=== PATIENT | female | born 1985 | race Caucasian/White ===

== ENCOUNTER 2018-12-23 10:44 | Outpatient (CLI) | payer SELFPAY ==
[2018-12-23 12:15] LABS: HCG Quant, Pregnancy 831 mIU/mL (1-3)
== END 2018-12-23 11:04 ==
PROVIDERS: PCP Nurse Practitioner Adult Health; Visit Provider Advanced Practice Midwife
DX: O20.0 Threatened abortion (principal)
CPT/HCPCS: 36415; 84702

== ENCOUNTER 2018-12-25 15:36 | Outpatient (CLI) | payer SELFPAY ==
[2018-12-25 16:56] LABS: HCG Quant, Pregnancy 790 mIU/mL (1-3)
== END 2018-12-25 15:56 ==
PROVIDERS: Advanced Practice Midwife; PCP Nurse Practitioner Adult Health; Visit Provider Obstetrics & Gynecology
DX: O03.9 Complete or unspecified spontaneous abortion without complication
CPT/HCPCS: 86850; 86900; 86901; 84702; 85025

== ENCOUNTER 2018-12-27 12:50 | Outpatient (CLI) | payer MEDICAID, SELFPAY ==
[2018-12-27 13:14] LABS: Abs Immature Grans 0.01 k/cumm (0.0-0.09); Absolute Basophil Count 0.02 k/cumm (0.0-0.2); Absolute Eosinophil Count 0.24 k/cumm (0.0-0.7); Absolute Lymphocyte Count 2.39 k/cumm (1.2-3.4); Absolute Monocyte Count 0.53 k/cumm (0.11-0.7); Absolute Neutrophil Count 3.75 k/cumm (1.2-6.7); Basophils % 0.3; Eosinophils % 3.5; HCT 39.1 % (36.0-46.0); HGB 13.3 g/dL (12.0-15.5); Immature Grans % 0.1; Lymphocytes % 34.4; Mean Corpuscular Hemoglobin 29.6 pg (27.0-33.0); Mean Corpuscular Volume 86.9 fL (80-95); Mean Platelet Volume 11.8 fL (8.0-11.0); Monocytes % 7.6; Neutrophils % 54.1; Platelet Count 188 x1000/uL (130-400); RBC Distribution Width 12.5 % (11.7-14.6); White Blood Cell Count 6.94 k/cumm (4.4-10.8)
[2018-12-27 14:17] LABS: HCG Quant, Pregnancy 1300 mIU/mL (1-3)
== END 2018-12-27 13:10 ==
PROVIDERS: PCP Nurse Practitioner Adult Health; Visit Provider Obstetrics & Gynecology
DX: O03.9 Complete or unspecified spontaneous abortion without complication (principal)
CPT/HCPCS: 36415; 84702; 85025

== ENCOUNTER 2018-12-29 18:21 | Emergency (ER) | payer MEDICAID, SELFPAY ==
[2018-12-29] VITALS (12 sets, daily range): BP systolic 112–139; BP diastolic 65–78; PULSE 81–111; RESP 16–18; TEMP 36.4–37.4; O2SAT 97–100
--- NOTE | 2018-12-29 18:26 | DI.US_ITS ---
EXAM: US PELVIS TRANSVAGINAL CLINICAL HISTORY: vaginal bleeding, rising BHCG TECHNIQUE: Ultrasound performed using standard protocol. Transabdominal and transvaginal exams wer e performed. COMPARISON: No exams were available for comparison FINDINGS: No intrauterine gestation is visible. The uterus measures 8.5 x 4.6 x 5.9 cm. The endometrial stripe measures 6 millimeters in thickness. There is a small amount of free fluid in the cul-de-sac. There i s an abnormal heterogeneous area adjacent to the left ovary. There is increased blood flow. The findi ngs could represent a tubal ectopic . A cyst measuring 2 cm is seen on the right ovary. IMPRESSION: 3.5 centimeter mass adjacent to the left ovary could represent an ectopic .
[2018-12-29] MEDS: Normal Saline 1,000 ML 150 ML IV (18:30)
--- NOTE | 2018-12-29 18:34 | ED.GENADUL_ITS ---
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 Clinical Impression: Ectopic Primary Care Provider: Cherrie Carrion ED Provider: Yovanny Pompa Meds and New Rx's Prescriptions: Continued multivitamin [Daily Multi-Vitamin] 1 EACH tablet 1 ea PO DAILY RF: 0 metoprolol succinate 25 MG tablet extended release 24 hr 25 mg PO DAILY Qty: 0.5 RF: 0 Co Q-10 300 MG capsule 300 mg PO DAILY RF: 0 magnesium amino acid chelate 100 MG tablet 100 mg PO DAILY RF: 0 [place] lamb tea DAILY RF: 0 hibiscus tea DAILY RF: 0 [place] Lamb Extract 650 mg PO BID RF: 0 Discharge Instructions Instructions: Ectopic (ED) Additional Instructions: Please follow-up with OB as discussed with them. Will need repeat beta quant at 4 days in 7 days. Return to emergency if you develop abdominal pain, heavy vaginal bleeding, lightheadedness/syncope. Referrals: Farhad Moreno MD [ NON-[facility]] - Medical Decision Making <Abad Perez MD - Last Filed: 12/29/18 19:34> 33-year-old female G3, P2 at approximately 6 weeks gestation who presents on referral from Dr. Moreno. She developed vaginal bleeding intermittently over the past week with some associated cramps and passage of dark tissue. She had an ultrasound which did show question free fluid around the left adnexa. Her beta hCG quant initially dropped from 800-700 and then julian again to 1300. Due to the rising beta hCG and ongoing intermittent vaginal bleeding, patient was referred back for evaluation. She denies to me abdominal pain. She is otherwise well-appearing. IV placed, screening laboratories obtained and patient referred for ultrasound. Labs reveal a white blood cell count of 7.9, hematocrit 38, platelets 178. Beta hCG +1640. Chemistry panel otherwise reassuring. Ultrasound reveals preliminary read of left ectopic. 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 Patient seen by Dr. Moreno. Patient and Dr. Moreno have decided to go ahead with methotrexate with close follow-up including repeat hCG at 4 days and 7 days. Dosing determined by Dr. Moreno and confirmed by pharmacist. Patient to return to ED if she develops abdominal pain, bleeding, lightheadedness or syncope. HPI <Abad Perez MD - Last Filed: 12/29/18 19:34> General Mode of arrival: ambulatory . Date/Time Provider Initiated Documentation: 12/29/18 18:26 . Limitations to Documentation: no limitations . Information obtained by: patient . History of Present Illness 33 year old F presents to the emergency department with the chief complaint of Vaginal bleeding intermittently for 1 week, described as moderate, and is localized to the pelvis and genitals. Patient started experiencing this day(s) and it has been intermittent. No relieving factors improve symptom(s), No exacerbating factors reported . Patient notes no other symptoms.; denies syncope and weakness. Patient did receive the following treatments prior to arrival, none Related Data Home Medications Medication Instructions Recorded Confirmed Co Q-10 300 mg PO DAILY 09/21/15 12/29/18 [place] Lamb Tea DAILY 09/21/15 12/25/18 Hibiscus Tea DAILY 09/21/15 12/25/18 magnesium amino acid chelate 100 mg PO DAILY 09/21/15 12/29/18 metoprolol succinate 25 mg PO DAILY #0.5 tab-cap 09/21/15 12/29/18 multivitamin [Daily Multi-Vitamin] 1 ea PO DAILY 09/21/15 12/29/18 [place] Lamb Extract 650 mg PO BID 12/29/18 12/29/18 Allergies Allergy/AdvReac Type Severity Reaction Status Date / Time Penicillins Allergy As Unverified 12/29/18 18:38 Sulfa (Sulfonamide Allergy As Unverified 12/29/18 18:38 Antibiotics) General 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 Pleasant, well groomed, interactive. HEAD: Normocephalic, atraumatic ENT: Mucous membranes moist, oropharynx unremarkable, External ear exam unremarkable EYES: PERRL, EOMI NECK: Full ROM, no DOMINGA, no menigismus CHEST/RESP: Nontender, clear to auscultation bilateral, no wheeze/rhonchi/rales CARDIOVASCULAR: RRR, no murmur, rub charley. 2+ Rad pulse bilateral ABDOMEN: Soft, nontender, no mass. +Bowel sounds EXT: Full ROM, no edema, no rash Neuro: Grossly normal neurologic exam, conversant, interactive. Psych: Speech fluent, thoughts congruent, affect normal Course <Abad Perez MD - Last Filed: 12/29/18 19:34> Vital Signs Vital signs: Vital Signs Temperature 36.4 C L 12/29/18 18:24 Pulse 81 12/29/18 18:24 Respiratory Rate 18 12/29/18 18:24 Blood Pressure 128/73 12/29/18 18:24 Pulse Oximetry 98 12/29/18 18:24 Temperature 36.4 C L 12/29/18 18:24 Temperature Source Skin 12/29/18 18:24 Pulse 81 12/29/18 18:24 Respiratory Rate 18 12/29/18 18:24 Blood Pressure 128/73 12/29/18 18:24 Blood Pressure Position Sitting 12/29/18 18:24 Pulse Oximetry 98 12/29/18 18:24 Oxygen Delivery Method Room Air 12/29/18 18:24 Oxygen Flow Rate 0 12/29/18 18:24 Sign Out <Abad Perez MD - Last Filed: 12/29/18 19:34> Sign Out Data: Sign Out Comment: followup with [employer] [employer] Attendant Last updated by Abad Perez MD at 12/29/18 19:51
[2018-12-29 18:49] LABS: Abs Immature Grans 0.02 k/cumm (0.0-0.09); Absolute Basophil Count 0.02 k/cumm (0.0-0.2); Absolute Eosinophil Count 0.27 k/cumm (0.0-0.7); Absolute Lymphocyte Count 3.13 k/cumm (1.2-3.4); Absolute Monocyte Count 0.67 k/cumm (0.11-0.7); Absolute Neutrophil Count 3.87 k/cumm (1.2-6.7); Basophils % 0.3; Eosinophils % 3.4; HCT 38.5 % (36.0-46.0); HGB 13.7 g/dL (12.0-15.5); Immature Grans % 0.3; Lymphocytes % 39.2; Mean Corp. HGB Concentration 35.6 g/dL (32.0-36.0); Mean Corpuscular Hemoglobin 30.1 pg (27.0-33.0); Mean Corpuscular Volume 84.6 fL (80-95); Mean Platelet Volume 11.5 fL (8.0-11.0); Monocytes % 8.4; Neutrophils % 48.4; Platelet Count 178 x1000/uL (130-400); RBC 4.55 m/cumm (4.00-5.20); RBC Distribution Width 12.5 % (11.7-14.6); White Blood Cell Count 7.98 k/cumm (4.4-10.8)
[2018-12-29 19:30] LABS: ALT 29 U/L (14-59); AST 19 U/L (15-37); Alkaline Phosphatase 42 U/L (46-116); Anion Gap 8.8 mmol/L (3-11); BUN 13 mg/dL (7-18); Bilirubin, Total 0.4 mg/dL (0.2-1.0); CO2 29.2 mmol/L (21.0-32.0); CREATININE 0.71 mg/dL (0.55-1.02); Calcium 9.1 mg/dL (8.5-10.1); Chloride 100 mmol/L (98-107); Glucose 96 mg/dL (70-100); HCG Quant, Pregnancy 1640 mIU/mL (1-3); Potassium 3.5 mmol/L (3.5-5.1); Sodium 138 mmol/L (136-145); Total Protein 7.3 g/dL (6.4-8.2)
--- NOTE | 2018-12-29 20:05 | NUR.NOTE ---
Assumed care of pt. Lying in bed in NAD. NS infusing. Dednies pain at this time. Awaiting US results.
--- NOTE | 2018-12-29 20:15 | DI.VRAD_ITS ---
Addendum created by Duong Ortiz DO on 12/29/2018 8:43:17 PM EST There is an error on the initial report. Hydronephrosis is the left, not on the right. Initial report created on 12/29/2018 8:15:12 PM EST PROCEDURE INFORMATION: Exam: US Pelvis Complete, Transabdominal and US Pelvis, Transvaginal Exam date and time: 12/29/2018 7:29 PM Clinical history: 33 years old, female; Other: Abnormal hcg levels and bleeding. ; Patient HX: Spotting and elevated hcg levels. TECHNIQUE: Imaging protocol: Real-time transabdominal and transvaginal pelvic ultrasound (complete) with image documentation. Transvaginal imaging was used for better evaluation of the endometrium and adnexa. COMPARISON: No relevant prior studies available. FINDINGS: Uterus/cervix: Uterus is normal. No intrauterine demonstrated Endometrial stripe is normal. . Right adnexa: Normal. No mass. Normal ovarian blood flow. Complex right ovarian cyst measures 2.2 cm in greatest diameter. Left adnexa: Left ovary harbors follicles and there is a tubular cystic structure or area measuring 0.7 x 2 cm adjacent to it, with flow, interposed between the ovary and a complex mass with flow peripherally, measuring approximately 2 x 3.5 x 3 cm. Centrally within this, there is an oval area of heterogeneous echogenicity surrounded by several echogenic rings. Normal ovarian blood flow. Free fluid: Moderate free fluid is demonstrated. Bladder: Normal. Other findings: Mild right hydronephrosis. IMPRESSION: 1. Left tubal ectopic suspected. 2. Complex right ovarian cyst. 3. Mild right hydronephrosis. THIS REPORT CONTAINS FINDINGS THAT MAY BE CRITICAL TO PATIENT CARE. The findings were verbally communicated via telephone conference with Dr. Pompa, 12/29/2018 8:13 PM EST. The findings were acknowledged and understood. OB consultation pending. Dictated and Authenticated by: Duong Ortiz MD. Ordering:DILSHAD Melgoza MD
--- NOTE | 2018-12-29 21:01 | W.GYNCONSULT ---
Date of service: 12/29/18 Time of Service: 21:02 Assessment and Plan Assessment and plan (1) Ectopic : Status: Acute Assessment and plan: Likely ectopic . I had a lengthy discussion with the patient regarding the risk for rupture and intraabdominal hemorrhage. I feel that she remains a methotrexate candidate and will provide a 50mg /m2 IM dose today. Will repeat serial hcgs on day 4 which is 01/01 and day 7 which is 01/04. The patient has been counseled on precautions and that she should present for care promptly should she develop any abdominal pain to significant severity. She has been counseled on the need for close follow up and we will see her in the clinic later this week. History of Present Illness History of Present Illness Chief Complaint: Ectopic Narrative: This is a 33 year old whom I contacted to present the emergency dept for suspicion of ectopic . I did see her in the clinic several days ago for possible miscarriage and no IUP was noted within the uterus on ultrasound. There was some free fluid about the left adnexa but no definitive ectopic was seen. We did obtain serial HCGs as follows: 12/23 831 12/25 790 12/27 1300 12/29 1640 On evaluation in the emergency department a left adnexal mass distinct from the ovary was noted measuring 3.5 cm in greatest dimension. The patient reports no pain today but has had fairly heavy vaginal bleeding over the last several days and initially felt that she was passing a miscarried IUP. [facility] Family History Mother Anxiety Father Patient's father is Maternal Aunt Breast cancer Social History Smoking/Tobacco Use Status: Never Alcohol Intake: never Drug use: Never Substance use type: does not use Counseling given: No Do you feel safe at home: Yes Do you feel safe in your relationship?: Yes Results Last Vital Signs Temp 98.6 F 12/29/18 19:35 Pulse 111 H 12/29/18 19:34 Resp 18 12/29/18 18:24 BP 139/78 12/29/18 19:34 Pulse Ox 100 12/29/18 19:50 Labs Result diagrams: 12/29/18 18:37 12/29/18 18:37 Labs: Laboratory Results - last 24 hr 12/29/18 12/29/18 12/29/18 18:37 18:37 18:37 WBC 7.98 RBC 4.55 Hgb 13.7 Hct 38.5 MCV 84.6 MCH 30.1 MCHC 35.6 RDW 12.5 Plt Count 178 MPV 11.5 H Immature Gran % 0.3 Neutrophils % 48.4 Lymphocytes % 39.2 Monocytes % 8.4 Eosinophils % 3.4 Basophils % 0.3 Absolute Neutrophils 3.87 Absolute Lymphocytes 3.13 Absolute Monocytes 0.67 Absolute Eosinophils 0.27 Absolute Basophils 0.02 Sodium 138 Potassium 3.5 Chloride 100 Carbon Dioxide 29.2 Anion Gap 8.8 BUN 13 Creatinine 0.71 Estimated GFR/1.73 m2 >= 60.00 Glucose 96 Calcium 9.1 Total Bilirubin 0.4 AST 19 ALT 29 Alkaline Phosphatase 42 L Total Protein 7.3 Albumin 4.0 Beta HCG, Quant 1640 H Patient ABO/Rh A Positive
--- NOTE | 2018-12-29 22:20 | NUR.NOTE ---
Med a/o. discharge instructions reviewed with verbal understanding. aware to f/u with OB and return for repeat bloodwork. IV removed. Ambulated to exit with steady gait.
== END 2018-12-29 22:20 | disposition home or self-care (01) ==
PROVIDERS: Emergency Medicine; Emergency Provider Emergency Medicine; PCP Nurse Practitioner Adult Health
DX: O00.90 Unspecified ectopic pregnancy without intrauterine pregnancy (principal); Z3A.00 Weeks of gestation of pregnancy not specified
CPT/HCPCS: 36415; 80053; 86900; 86901; 96360; 96361; 96372; 99253; 99284; 76830; 76856; 84702; 85025; J9250

== ENCOUNTER 2018-12-31 18:08 | Observation (INO) | payer MEDICAID, SELFPAY ==
[2018-12-31] VITALS (9 sets, daily range): BP systolic 76–136; BP diastolic 27–87; PULSE 58–100; RESP 16–28; TEMP 36.7–37.3; O2SAT 96–100
--- NOTE | 2018-12-31 18:15 | DI.US_ITS ---
EXAM: US TRANSVAGINAL CLINICAL HISTORY: known ectopic, L lower pain TECHNIQUE: Ultrasound performed using standard protocol. COMPARISON: US PELVIS TRANSVAGINAL from 12/29/2018 FINDINGS: Pelvic ultrasound was performed transvaginally. Previous ultrasound showed left ovarian presumed ect opic gestation. On today's examination, the presumed ectopic gestation is again noted, which is a com plex vascular structure measuring up to about 4.7 cm in diameter. There is septated right ovarian cy st measuring about 20 millimeters in diameter. Mild free fluid is identified in the cul-de-sac. Mallory stef is unremarkable in appearance except for mildly thickened endometrial stripe which is nonspecific . IMPRESSION: Left ovarian/tubal ectopic gestation. Appropriate clinical follow-up recommended.
--- NOTE | 2018-12-31 18:43 | ED.GENADUL_ITS ---
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 Clinical Impression: Left tubal without intrauterine Primary Care Provider: Cherrie Carrion ED Provider: Abad Perez Home Meds and New Rx's Prescriptions: No Action multivitamin [Daily Multi-Vitamin] 1 EACH tablet 1 ea PO DAILY RF: 0 metoprolol succinate 25 MG tablet extended release 24 hr 25 mg PO DAILY Qty: 0.5 RF: 0 Co Q-10 300 MG capsule 300 mg PO DAILY RF: 0 magnesium amino acid chelate 100 MG tablet 100 mg PO DAILY RF: 0 [place] lamb tea DAILY RF: 0 hibiscus tea DAILY RF: 0 [place] Lamb Extract 650 mg PO BID RF: 0 Medical Decision Making 33-year-old female at approximately 6 weeks gestation with known left ectopic for which she received methotrexate on December 29. Now with ongoing left lower quadrant abdominal pain seems to have increased over the past 48 hours time. She was referred by her Dr Moreno for repeat evalution. IV placed, screening labs obtained, patient referred for ultrasound. This does reveal free fluid. Patient will be taken to the OR by Dr. Moreno HPI General Mode of arrival: ambulatory . Date/Time Provider Initiated Documentation: 12/31/18 18:15 . Limitations to Documentation: no limitations . Information obtained by: patient . History of Present Illness 33 year old F presents to the emergency department with the chief complaint of Persistent left lower quadrant abdominal pain, known ectopic , described as moderate, Quality is described as dull and constant, and is localized to the abdomen and left. Patient reports no radiation. Patient started experiencing this day(s) and it has been constant. No relieving factors improve symptom(s), No exacerbating factors reported . Patient notes denies fever/chills and nausea/vomiting. Patient did receive the following treatments prior to arrival, other (Received methotrexate on December 29) Related Data Home Medications Medication Instructions Recorded Confirmed Co Q-10 300 mg PO DAILY 09/21/15 12/31/18 [place] Lamb Tea DAILY 09/21/15 12/25/18 Hibiscus Tea DAILY 09/21/15 12/25/18 magnesium amino acid chelate 100 mg PO DAILY 09/21/15 12/31/18 metoprolol succinate 25 mg PO DAILY #0.5 tab-cap 09/21/15 12/31/18 multivitamin [Daily Multi-Vitamin] 1 ea PO DAILY 09/21/15 12/31/18 [place] Lamb Extract 650 mg PO BID 12/29/18 12/31/18 Allergies Allergy/AdvReac Type Severity Reaction Status Date / Time Penicillins Allergy As infant Unverified 12/31/18 18:37 Sulfa (Sulfonamide Allergy As Unverified 12/31/18 18:37 Antibiotics) General 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 6 systems reviewed and otherwise negative [facility] Social History Smoking/Tobacco Use Status: Never Alcohol Intake: current Alcohol Intake frequency: holidays/special occasions only Drug use: Never Substance use type: does not use Counseling given: No Do you feel safe at home: Yes Do you feel safe in your relationship?: Yes Exam Narrative Exam Narrative: GEN: awake, alert, oriented 3. Pleasant, well groomed, interactive. HEAD: Normocephalic, atraumatic EYES: PERRL, EOMI NECK: Full ROM, no mass CHEST/RESP: Nontender, clear to auscultation bilateral, no wheeze/rhonchi/rales CARDIOVASCULAR: RRR, no murmur, rub charley. 2+ Rad pulse bilateral ABDOMEN: Soft, tender in the left lower quadrant without rebound, no mass. +Bowel sounds EXT: Full ROM, no edema, no rash Neuro: Grossly normal neurologic exam, conversant, interactive. Psych: Speech fluent, thoughts congruent, affect normal Course Vital Signs Vital signs: Vital Signs Temperature 37.0 C 12/31/18 18:34 Pulse 82 12/31/18 18:34 Respiratory Rate 18 12/31/18 18:34 Blood Pressure 136/87 12/31/18 18:34 Pulse Oximetry 99 12/31/18 18:34 Temperature 37.0 C 12/31/18 18:34 Temperature Source Skin 12/31/18 18:34 Pulse 82 12/31/18 18:34 Respiratory Rate 18 12/31/18 18:34 Respiratory Effort Non-Labored 12/31/18 18:36 Blood Pressure 136/87 12/31/18 18:34 Blood Pressure Position Sitting 12/31/18 18:34 Pulse Oximetry 99 12/31/18 18:34 Oxygen Delivery Method Room Air 12/31/18 18:34 Oxygen Flow Rate 0 12/31/18 18:34 Pain Level 8 12/31/18 18:39
[2018-12-31 19:01] LABS: Abs Immature Grans 0.01 k/cumm (0.0-0.09); Absolute Basophil Count 0.02 k/cumm (0.0-0.2); Absolute Eosinophil Count 0.24 k/cumm (0.0-0.7); Absolute Lymphocyte Count 2.61 k/cumm (1.2-3.4); Absolute Monocyte Count 0.54 k/cumm (0.11-0.7); Absolute Neutrophil Count 4.17 k/cumm (1.2-6.7); Basophils % 0.3; Eosinophils % 3.2; HCT 38.5 % (36.0-46.0); HGB 13.3 g/dL (12.0-15.5); Immature Grans % 0.1; Lymphocytes % 34.4; Mean Corp. HGB Concentration 34.5 g/dL (32.0-36.0); Mean Corpuscular Hemoglobin 29.3 pg (27.0-33.0); Mean Corpuscular Volume 84.8 fL (80-95); Mean Platelet Volume 11.4 fL (8.0-11.0); Monocytes % 7.1; Neutrophils % 54.9; Platelet Count 191 x1000/uL (130-400); RBC 4.54 m/cumm (4.00-5.20); RBC Distribution Width 12.7 % (11.7-14.6); White Blood Cell Count 7.59 k/cumm (4.4-10.8)
[2018-12-31 19:14] LABS: Anion Gap 11.3 mmol/L (3-11); BUN 7 mg/dL (7-18); CO2 23.7 mmol/L (21.0-32.0); CREATININE 0.54 mg/dL (0.55-1.02); Calcium 8.5 mg/dL (8.5-10.1); Chloride 104 mmol/L (98-107); Glucose 98 mg/dL (70-100); Potassium 3.5 mmol/L (3.5-5.1); Sodium 139 mmol/L (136-145)
--- NOTE | 2018-12-31 20:03 | W.PM.HP.N ---
Date of service: 12/31/18 Time of Service: 20:03 Assessment and Plan Assessment and plan (1) Ectopic : Status: Acute Assessment and plan: Pelvic ultrasound was repeated today demonstrating an increasing the amount of free fluid compared to previous study. The size of the presumed ectopic has not changed dramatically since last study. I reviewed options with the patient. Because the concern for free fluid to be active bleeding in the abdomen my recommendation would be to proceed with surgery this evening. We will proceed with laparoscopic left salpingectomy under general anesthesia. Risks of surgery were reviewed with the patient. We discussed attempted salpingostomy if the right fallopian tube appears to be abnormal in any way in order to preserve fertility. Risks of surgery were reviewed including hemorrhage, infection and injury to other organs such as bowel bladder. All questions were answered to the patient's satisfaction and consent for surgery was obtained. History of Present Illness History of Present Illness Chief Complaint: Ectopic Narrative: 33-year-old presents today with worsening left-sided abdominal pain. The patient has been followed for an ectopic and received methotrexate 2 days prior. Previously she did have some mild left-sided abdominal pain which she rates today's pain as severe as 8 out of 10 but that it comes in waves. She has minimal vaginal bleeding. She denies any dizziness or lightheadedness. No chest pain or shortness of breath. She is generally healthy with no chronic medical problems. Review of Systems All systems reviewed & are unremarkable except as noted in HPI and below PFSH Social History Smoking/Tobacco Use Status: Never Alcohol Intake: current Alcohol Intake frequency: holidays/special occasions only Drug use: Never Substance use type: does not use Counseling given: No Do you feel safe at home: Yes Do you feel safe in your relationship?: Yes Meds Home Medications and Allergies Home Medications Medication Instructions Recorded Confirmed Type Co Q-10 300 mg PO DAILY 09/21/15 12/31/18 History [place] Tea DAILY 09/21/15 12/25/18 History Hibiscus Tea DAILY 09/21/15 12/25/18 History magnesium amino acid chelate 100 mg PO DAILY 09/21/15 12/31/18 History metoprolol succinate 25 mg PO DAILY #0.5 tab-cap 09/21/15 12/31/18 History multivitamin [Daily Multi-Vitamin] 1 ea PO DAILY 09/21/15 12/31/18 History [place] Extract 650 mg PO BID 12/29/18 12/31/18 History Allergies Allergy/AdvReac Type Severity Reaction Status Date / Time Penicillins Allergy As infant Unverified 12/31/18 18:37 Sulfa (Sulfonamide Allergy As infant Unverified 12/31/18 18:37 Antibiotics) Exam Resp Auscultation: clear to auscultation bilaterally Cardio Rate: regular rate Rhythm: regular rhythm Heart Sounds: S1 normal and S2 normal GI Other: Abdomen is soft with tenderness to palpation in the left lower quadrant. No rebound guarding or rigidity. Other: Deferred Results Labs Result diagrams: 12/31/18 18:40 12/31/18 18:40 Labs: Laboratory Results - last 24 hr 12/31/18 12/31/18 18:40 18:40 WBC 7.59 RBC 4.54 Hgb 13.3 Hct 38.5 MCV 84.8 MCH 29.3 MCHC 34.5 RDW 12.7 Plt Count 191 MPV 11.4 H Immature Gran % 0.1 Neutrophils % 54.9 Lymphocytes % 34.4 Monocytes % 7.1 Eosinophils % 3.2 Basophils % 0.3 Absolute Neutrophils 4.17 Absolute Lymphocytes 2.61 Absolute Monocytes 0.54 Absolute Eosinophils 0.24 Absolute Basophils 0.02 Sodium 139 Potassium 3.5 Chloride 104 Carbon Dioxide 23.7 Anion Gap 11.3 H BUN 7 Creatinine 0.54 L Estimated GFR/1.73 m2 >= 60.00 Glucose 98 Calcium 8.5 Last Vital Signs Temp 98.6 F 12/31/18 18:34 Pulse 82 12/31/18 18:34 Resp 18 12/31/18 18:34 BP 136/87 12/31/18 18:34 Pulse Ox 99 12/31/18 18:34
--- NOTE | 2018-12-31 20:15 | DI.VRAD_ITS ---
PROCEDURE INFORMATION: Exam: US Duplex Artery and Vein of the Abdominal and/or Reproductive Organs, Complete Exam date and time: 12/31/2018 7:31 PM Clinical history: 33 years old, female; Pelvic pain; Patient HX: Known left ectopic; Now with worsening llq pain TECHNIQUE: Imaging protocol: Real-time duplex ultrasound scan of the arterial and venous flow of the abdominal and/or reproductive organs with B-mode, color Doppler flow and spectral waveform analysis with image documentation. Exam focused on the region of clinical concern. Complete exam. Duplex images required to evaluate vascular conditions. COMPARISON: US PELVIS TRANSVAGINAL 12/29/2018 7:51 PM FINDINGS: Uterus: The uterus measures 8.3 x 4.3 x 4.9 cm. Endometrial stripe measures 7 mm. Ovaries: Left ovary measures 3.4 x 1.3 x 1.4 cm. Small follicles are noted. Blood flow is identified. An arterial and venous wave form was obtained. Right ovary measures 3.4 x 2.6 x 2.9 cm. Again seen is a complex cystic structure in the right ovary measuring 2.0 cm which contains a septation. This could represent a corpus luteal lesion of . Other types of lesions are not excluded. Blood flow is identified. An arterial and venous wave form was obtained. The patient has a history of abnormalities in the left adnexa. Prior dictation reads: The findings could represent a tubal ectopic . In the left adnexal region, a heterogeneous mass is again identified which measures 4.7 x 3.6 x 4.3 cm. Once again, this is very worrisome for a left ectopic . Previously, it measured 3.8 x 2.8 x 4.2 cm. Intraperitoneal space: There is mild to moderate free fluid in the cul-de-sac. IMPRESSION: 1. Blood flow to the ovaries bilaterally. 2. Heterogeneous mass in the left adnexal region has increased in measurements. Once again, this is very worrisome for a left ectopic . Given the interval increase in size and worsening pain, findings are worrisome for worsening hemorrhage. Gynecology consult recommended for appropriate management. 3. Mild to moderate free fluid in the cul-de-sac. 4. Mildly complex cystic structure in the right ovary is described. Followup suggested. Other findings/details as above. PROCEDURE INFORMATION: Exam: US Pelvis, Transvaginal Exam date and time: 12/31/2018 7:31 PM Clinical history: 33 years old, female; Pelvic pain; Patient HX: Known left ectopic; Now with worsening llq pain TECHNIQUE: Imaging protocol: Real-time transvaginal pelvic ultrasound with image documentation. Transvaginal imaging was used for better evaluation of the endometrium and adnexa. COMPARISON: US PELVIS TRANSVAGINAL 12/29/2018 7:51 PM FINDINGS: Uterus: The uterus measures 8.3 x 4.3 x 4.9 cm. Endometrial stripe measures 7 mm. Ovaries: Left ovary measures 3.4 x 1.3 x 1.4 cm. Small follicles are noted. Blood flow is identified. An arterial and venous wave form was obtained. Right ovary measures 3.4 x 2.6 x 2.9 cm. Again seen is a complex cystic structure in the right ovary measuring 2.0 cm which contains a septation. This could represent a corpus luteal lesion of . Other types of lesions are not excluded. Blood flow is identified. An arterial and venous wave form was obtained. The patient has a history of abnormalities in the left adnexa. Prior dictation reads: The findings could represent a tubal ectopic . In the left adnexal region, a heterogeneous mass is again identified which measures 4.7 x 3.6 x 4.3 cm. Once again, this is very worrisome for a left ectopic . Previously, it measured 3.8 x 2.8 x 4.2 cm. Intraperitoneal space: There is mild to moderate free fluid in the cul-de-sac. IMPRESSION: 1. Blood flow to the ovaries bilaterally. 2. Heterogeneous mass in the left adnexal region has increased in measurements. Once again, this is very worrisome for a left ectopic . Given the interval increase in size and worsening pain, findings are worrisome for worsening hemorrhage. Gynecology consult recommended for appropriate management. 3. Mild to moderate free fluid in the cul-de-sac. 4. Mildly complex cystic structure in the right ovary is described. Followup suggested. Other findings/details as above. THIS REPORT CONTAINS FINDINGS THAT MAY BE CRITICAL TO PATIENT CARE. The findings were verbally communicated via telephone conference with Dr. Cisneros at 8:14 PM EST on 12/31/2018. The findings were acknowledged and understood. Per Dr. Cisneros, the patient is being taken to the OR. Dictated and Authenticated by: Marie Potter MD. Ordering:DILSHAD Melgoza MD
[2018-12-31] MEDS: Lactated Ringers 1,000 ML 30 ML IV (20:20)
[2018-12-31] MEDS: Bupivacaine 0.25% Pres-Free 30 ML VIAL (20:55)
--- NOTE | 2018-12-31 21:16 | FALL_PTH ---
PATIENT: Karena Elias LOC: OBS U#:[id number] AGE/SX: 33/F ROOM: OBS.303 RE12/31/[address]: Farhad Moreno MD : 1985 BED: A DIS: 01/01/2019 SPEC #: [id number] RECD: 01/01/19 12:50 STATUS: KENNEDI REQ #: [id number] TYLER: 12/31/18 21:[address]: Farhad Moreno DEPT: Surgical Specimen RECD BY: Ana Kelley ENTERED: 01/01/19 12:50 SP TYPE: Fall OTHR DR: Cherrie Carrion Tissues: 1 - FALLOPIAN TUBE (ECTOPIC) Procedures: GROSS AND MICRO LEVEL 4 Comments: [id number]
[2018-12-31] MEDS: Cellulose,Oxidized 4X8 1 PACKET MC (21:29)
--- NOTE | 2018-12-31 22:05 | ROE_ITS ---
Date of service: 12/31/18 Time of Service: 22:05 Operative Note Operative Note DATE OF PROCEDURE: 12/31/18 PRE-OP DIAGNOSIS: Left ectopic POST-OP DIAGNOSIS: same PROCEDURE: Laparoscopic left salpinectomy SURGEON: Farhad Moreno ANESTHESIA: CONCHITA ESTIMATED BLOOD LOSS: 10 PATHOLOGY: other (Left fallopian tube) COMPLICATIONS: None Patient was transported to: PACU Patient's condition: stable Findings: 1. Large left sided ectopic occupying distal fallopian tube and growing into peritoneum of anterior abdominal wall lateral to bladder Procedure Description: The patient was taken to the operating room and after adequate general anesthesia was obtained the patient was placed in supine position. The patient was prepped and draped in the usual sterile manner. The bladder was straight cathed for approximately 100 mL's of clear urine. The skin and subcutaneous tissues at the umbilicus were infiltrated with 0.25% Marcaine solution. A small infraumbilical skin incision was then made with a #15 blade scalpel and sharp dissection was carried down to the underlying layer fascia. The fascia was incised with the scalpel and the peritoneum was entered sharply with hemostats. 2 sutures of 0 Vicryl were placed on either side of the fascial incision. A 10 mm balloon trocar was advanced to the incision and secured in place. A pneumoperitoneum to approximately 50 mmHg with carbon dioxide was established. The 10 mm laparoscope was inserted. A moderate sized hemoperitoneum was noted. 2 5 mm ports were placed under direct visualization in the right upper and right lower quadrants. The right tube and ovary were noted to be normal in appearance. The left fallopian tube was occupied with ectopic and was rolled over the anterior lip of the broad ligament and adherent to the peritoneal surface just lateral to the bladder reflection. The fallopian tube was mobilized with blunt dissection from the peritoneal surface. Dissection was carried across the left mesosalpinx with the LigaSure device. Dissection was carried to the proximal fallopian tube which was transected. [place] dissection as well as blunt dissection with a grasper were used to mobilize tissue from the peritoneal surface. The involvement with ectopic was fairly deep penetrating well beyond the peritoneum. The majority of clots and tissue were able to be extracted from the defect in the peritoneum and were retrieved with an Endo Catch bag including the ectopic . These were removed from the abdomen. Hydrodissection was continued along this defect which was approximately 2 cm in greatest dimension. Surgicel was placed on the defect in order to help achieve hemostasis. All sites of dissection were noted to be hemostatic. The two 5 mm trochars were removed under direct visualization. The abdomen was desufflated and the umbilical trocar was removed. The fascia at the umbilicus was closed with a 2 previously placed sutures of 0 Vicryl. Each skin incision was closed with interrupted sutures of 4 Monocryl. Dermabond was applied each incision. The procedure was concluded at this point. Sponge, lap, and needle counts were correct at the conclusion of the procedure. The patient tolerated the procedure well and was transferred to PACU stable condition.
[2018-12-31] MEDS: fentaNYL 100 MCG/2 ML VIAL IVP (22:10)
[2018-12-31] MEDS: Lactated Ringers 1,000 ML 125 ML IV (22:40)
[2019-01-01] MEDS: Acetaminophen 500 MG TAB 1000 MG PO (01:50)
[2019-01-01 02:00] VITALS: BP 113/68; PULSE 88; RESP 16; TEMP 36.8
[2019-01-01] MEDS: Ketorolac 30 MG/ML VIAL IVP (03:35)
--- NOTE | 2019-01-01 08:07 | W.PM.PROGNOT ---
Date of Service Date of service: 01/01/19 Time of Service: 08:08 Assessment and Plan Assessment and plan (1) Ectopic : Status: Acute Assessment and plan: Plan for discharge home today follow-up with me in the clinic in 1 week. Patient will undergo serial hCGs until negative due to peritoneal involvement of the ectopic . Subjective Subjective Interval history since last seen: Doing well. Pain well controlled. Ambulatory. Tolerating regular diet. Objective Objective Clinical Data: Abnormal lab results 12/31/18 12/31/18 Range/Units 18:40 18:40 MPV 11.4 H (8.0-11.0) fL Anion Gap 11.3 H (3-11) mmol/L Creatinine 0.54 L (0.55-1.02) mg/dL Vital Signs Temperature 98.2 F 01/01/19 02:00 Temperature Source Oral 01/01/19 02:00 Pulse 88 01/01/19 02:00 Pulse Rhythm Regular 12/31/18 22:30 Respiratory Rate 16 01/01/19 02:00 Respiratory Effort Non-Labored 12/31/18 22:30 Respiratory Depth Normal 12/31/18 22:30 Respiratory Pattern Normal 12/31/18 22:30 Blood Pressure 113/68 01/01/19 02:00 Blood Pressure Position Sitting 12/31/18 18:34 Pulse Oximetry 97 12/31/18 22:30 Respiratory End-tidal CO2 33 12/31/18 22:06 Oxygen Delivery Method Room Air 01/01/19 02:00 Oxygen Flow Rate 0 01/01/19 02:00 Pain Level 5 12/31/18 22:30 Intake & Output 12/31/18 12/31/18 01/01/19 11:59 23:59 11:59 Intake Total 736 / 736 900 / 900 Output Total 150 / 150 1800 / 1800 Balance 586 / 586 -900 / -900 Weight 165 lb 0.009 oz Intake: IV 736 / 736 Oral 900 / 900 Output: Urine 150 / 150 1800 / 1800 Other: Urine Color Pale Yellow Urine Appearance Clear Clear Emesis Description None Laboratory Results WBC 7.59 k/cumm (4.4-10.8) 12/31/18 18:40 RBC 4.54 m/cumm (4.00-5.20) 12/31/18 18:40 Hgb 13.3 g/dL (12.0-15.5) 12/31/18 18:40 Hct 38.5 % (36.0-46.0) 12/31/18 18:40 MCV 84.8 fL (80-95) 12/31/18 18:40 MCH 29.3 pg (27.0-33.0) 12/31/18 18:40 MCHC 34.5 g/dL (32.0-36.0) 12/31/18 18:40 RDW 12.7 % (11.7-14.6) 12/31/18 18:40 Plt Count 191 x1000/uL (130-400) 12/31/18 18:40 MPV 11.4 fL (8.0-11.0) H 12/31/18 18:40 Immature Gran % 0.1 12/31/18 18:40 Neutrophils % 54.9 12/31/18 18:40 Lymphocytes % 34.4 12/31/18 18:40 Monocytes % 7.1 12/31/18 18:40 Eosinophils % 3.2 12/31/18 18:40 Basophils % 0.3 12/31/18 18:40 Absolute Neutrophils 4.17 k/cumm (1.2-6.7) 12/31/18 18:40 Absolute Lymphocytes 2.61 k/cumm (1.2-3.4) 12/31/18 18:40 Absolute Monocytes 0.54 k/cumm (0.11-0.7) 12/31/18 18:40 Absolute Eosinophils 0.24 k/cumm (0.0-0.7) 12/31/18 18:40 Absolute Basophils 0.02 k/cumm (0.0-0.2) 12/31/18 18:40 Sodium 139 mmol/L (136-145) 12/31/18 18:40 Potassium 3.5 mmol/L (3.5-5.1) 12/31/18 18:40 Chloride 104 mmol/L (98-107) 12/31/18 18:40 Carbon Dioxide 23.7 mmol/L (21.0-32.0) 12/31/18 18:40 Anion Gap 11.3 mmol/L (3-11) H 12/31/18 18:40 BUN 7 mg/dL (7-18) 12/31/18 18:40 Creatinine 0.54 mg/dL (0.55-1.02) L 12/31/18 18:40 Estimated GFR/1.73 m2 >= 60.00 (mL/min/1.73m2) 12/31/18 18:40 Glucose 98 mg/dL (70-100) 12/31/18 18:40 Calcium 8.5 mg/dL (8.5-10.1) 12/31/18 18:40
--- NOTE | 2019-01-01 08:17 | W.PM.DS.N ---
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 An ultrasound was performed which was suggestive of a hemoperitoneum and a persistent ectopic . The patient was taken to the operating room for laparoscopy and underwent left salpingectomy. Findings at the time of surgery demonstrated ectopic at the distal end of the fallopian tube which was also penetrating the peritoneum anteriorly to the left of the bladder reflection. The patient underwent salpingectomy. Postoperative day 1 she was felt suitable for discharge. She had met all postoperative milestones. Home Meds and New Rx's Prescriptions: New hydrocodone-acetaminophen 7.5-325 mg Tablet 1 tab PO Q4H PRN PRNQty: 20 RF: 0 Continued multivitamin [Daily Multi-Vitamin] 1 EACH tablet 1 ea PO DAILY RF: 0 metoprolol succinate 25 MG tablet extended release 24 hr 25 mg PO DAILY Qty: 0.5 RF: 0 Co Q-10 300 MG capsule 300 mg PO DAILY RF: 0 magnesium amino acid chelate 100 MG tablet 100 mg PO DAILY RF: 0 [place] lamb tea DAILY RF: 0 hibiscus tea DAILY RF: 0 [place] Lmab Extract 650 mg PO BID RF: 0 Discharge Instructions Activity:: Activity as Tolerated Activity:: Activity as Tolerated Equipment/Supplies:: No Equipment Needed Diet:: As Tolerated DS: Summary Status at Discharge Functional status at discharge: independent ambulation Overall status at discharge: patient is back to baseline Mental Status: mental status grossly normal Speech and Movement: speech and movement normal Mood: congruent mood Affect: normal affect Exam Psych Mental Status: mental status grossly normal Speech and Movement: speech and movement normal Mood: congruent mood Affect: normal affect DS: Data Vitals/I&O Vitals and I&O: Vital Signs Temperature 98.2 F 01/01/19 02:00 Temperature Source Oral 01/01/19 02:00 Pulse 88 01/01/19 02:00 Pulse Rhythm Regular 12/31/18 22:30 Respiratory Rate 16 01/01/19 02:00 Respiratory Effort Non-Labored 12/31/18 22:30 Respiratory Depth Normal 12/31/18 22:30 Respiratory Pattern Normal 12/31/18 22:30 Blood Pressure 113/68 01/01/19 02:00 Blood Pressure Position Sitting 12/31/18 18:34 Pulse Oximetry 97 12/31/18 22:30 Respiratory End-tidal CO2 33 12/31/18 22:06 Oxygen Delivery Method Room Air 01/01/19 02:00 Oxygen Flow Rate 0 01/01/19 02:00 Pain Level 5 12/31/18 22:30 Intake & Output 12/31/18 12/31/18 01/01/19 11:59 23:59 11:59 Intake Total 736 / 736 900 / 900 Output Total 150 / 150 1800 / 1800 Balance 586 / 586 -900 / -900 Weight 165 lb 0.009 oz Intake: IV 736 / 736 Oral 900 / 900 Output: Urine 150 / 150 1800 / 1800 Other: Urine Color Pale Yellow Urine Appearance Clear Clear Emesis Description None Data Completed and Pending Labs on day of discharge: Labs from last 24 hours 12/31/18 12/31/18 18:40 18:40 WBC 7.59 RBC 4.54 Hgb 13.3 Hct 38.5 MCV 84.8 MCH 29.3 MCHC 34.5 RDW 12.7 Plt Count 191 MPV 11.4 H Immature Gran % 0.1 Neutrophils % 54.9 Lymphocytes % 34.4 Monocytes % 7.1 Eosinophils % 3.2 Basophils % 0.3 Absolute Neutrophils 4.17 Absolute Lymphocytes 2.61 Absolute Monocytes 0.54 Absolute Eosinophils 0.24 Absolute Basophils 0.02 Sodium 139 Potassium 3.5 Chloride 104 Carbon Dioxide 23.7 Anion Gap 11.3 H BUN 7 Creatinine 0.54 L Estimated GFR/1.73 m2 >= 60.00 Glucose 98 Calcium 8.5 PFSH Social History Smoking/Tobacco Use Status: Never Alcohol Intake: current Alcohol Intake frequency: holidays/special occasions only Drug use: Never Substance use type: does not use Counseling given: No Do you feel safe at home: Yes Do you feel safe in your relationship?: Yes
[2019-01-01 08:57] VITALS: BP 109/62; PULSE 83; RESP 14; TEMP 36.7; O2SAT 99
== END 2019-01-01 08:50 | disposition home or self-care (01) ==
LOC: ER 20:05 → SUR 20:17 → OBS 01-01 00:09
PROVIDERS: Admitting Provider Obstetrics & Gynecology; Emergency Provider Emergency Medicine; PCP Nurse Practitioner Adult Health; Visit Provider Obstetrics & Gynecology
PROC: 10T24ZZ Resection of Products of Conception, Ectopic, Percutaneous Endoscopic Approach (ICD-10-PCS; CPT 58661; principal; 2018-12-31 20:15)
DX: O00.102 Left tubal pregnancy without intrauterine pregnancy (principal); O00.00 Abdominal pregnancy without intrauterine pregnancy; K66.1 Hemoperitoneum
CPT/HCPCS: 59151; 36415; 80048; 88305; 96360; 96361; 99223; 99233; 99239; 99285; 76830; 85025; 99284; G0378; J1100; J1885; J2250; J2405; J3010

== ENCOUNTER 2019-01-02 15:43 | Outpatient (CLI) | payer MEDICAID, SELFPAY ==
[2019-01-02 17:30] LABS: HCG Quant, Pregnancy 336 mIU/mL (1-3)
== END 2019-01-02 16:03 ==
PROVIDERS: PCP Nurse Practitioner Adult Health; Visit Provider Obstetrics & Gynecology
DX: O00.90 Unspecified ectopic pregnancy without intrauterine pregnancy (principal)
CPT/HCPCS: 36415; 84702

== ENCOUNTER 2019-01-07 15:54 | Outpatient (CLI) | payer MEDICAID, SELFPAY ==
[2019-01-07 17:57] LABS: HCG Quant, Pregnancy 45 mIU/mL (1-3)
== END 2019-01-07 16:14 ==
PROVIDERS: PCP Nurse Practitioner Adult Health; Visit Provider Obstetrics & Gynecology
DX: O00.90 Unspecified ectopic pregnancy without intrauterine pregnancy (principal)
CPT/HCPCS: 36415; 84702

== ENCOUNTER 2019-02-27 15:39 | Outpatient (CLI) | payer MEDICAID, SELFPAY ==
[2019-02-27 16:55] LABS: HCG Quant, Pregnancy 771 mIU/mL (1-3)
== END 2019-02-27 15:59 ==
PROVIDERS: Obstetrics & Gynecology; PCP Nurse Practitioner Adult Health; Visit Provider Nurse Practitioner Family
DX: Z32.01 Encounter for pregnancy test, result positive (principal); Z87.59 Personal history of other complications of pregnancy, childbirth and the puerperium
CPT/HCPCS: 36415; 84702

== ENCOUNTER 2019-03-01 09:22 | Outpatient (CLI) | payer MEDICAID, SELFPAY ==
[2019-03-01 10:58] LABS: HCG Quant, Pregnancy 1568 mIU/mL (1-3)
== END 2019-03-01 09:42 ==
PROVIDERS: PCP Nurse Practitioner Adult Health; Visit Provider Nurse Practitioner Family
DX: Z87.59 Personal history of other complications of pregnancy, childbirth and the puerperium (principal)
CPT/HCPCS: 36415; 84702

== ENCOUNTER 2019-04-18 16:32 | Outpatient (REF) | payer MEDICAID, SELFPAY ==
--- NOTE | 2019-04-18 14:30 | PAPFT_PTH ---
PATIENT: Karena Elias LOC: [facility] U#:[id number] AGE/SX: 34/F ROOM: RE04/18/[address]: Jaskaran Bolaños RN : 1985 BED: DIS: 04/18/2019 SPEC #: [id number] RECD: 04/18/19 17:13 STATUS: KENNEDI REEduar #: [id number] TYLER: 04/18/19 14:[address]: Jaskaran Bolaños DEPT: [facility] Cytology RECD BY: Ana Kelley ENTERED: 04/18/19 17:14 SP TYPE: PAPFT OTHR DR: Cherrie Carrion Tissues: 1 - CX/ENDOCX FOR PAP SMEARS Procedures: PAP THIN PREP/UVM Screening HPV DNA PROBE Comments: [id number]
[2019-04-18 18:11] LABS: *AMPHETAMINES SCREEN URINE Negative (Negative); *BARBITURATES SCREEN URINE Negative (Negative); *BENZODIAZEPINES SCREEN URINE Negative (Negative); Cannabinoids THC Negative (Negative); Cocaine Screen,Urine Negative (Negative); METHADONE URINE SCREEN Negative (Negative); OPIATES URINE SCREEN Negative (Negative)
[2019-04-18 18:16] LABS: Tricyclic Antidepressants Negative (Negative)
[2019-04-21 13:25] LABS: Chlamydia Result Negative (Negative)
[2019-04-23 10:58] LABS: Buprenorphine Negative; Norbuprenorphine Negative
[2019-04-25 11:29] LABS: GC Result Negative (Negative)
== END 2019-04-18 16:52 ==
LOC: LBN 16:32
PROVIDERS: Advanced Practice Midwife; PCP Nurse Practitioner Adult Health; Visit Provider Advanced Practice Midwife
DX: Z34.90 Encounter for supervision of normal pregnancy, unspecified, unspecified trimester (principal); Z12.4 Encounter for screening for malignant neoplasm of cervix; Z11.51 Encounter for screening for human papillomavirus (HPV)
CPT/HCPCS: 80307; 87491; 87591; 88142; 87086; 87624

== ENCOUNTER 2019-04-21 07:44 | Outpatient (CLI) | payer MEDICAID, SELFPAY ==
[2019-04-21 08:20] LABS: Kit/Specimen SENT
[2019-04-21 08:24] LABS: Abs Immature Grans 0.03 k/cumm (0.0-0.09); Absolute Basophil Count 0.01 k/cumm (0.0-0.2); Absolute Eosinophil Count 0.17 k/cumm (0.0-0.7); Absolute Lymphocyte Count 1.39 k/cumm (1.2-3.4); Absolute Neutrophil Count 5.04 k/cumm (1.2-6.7); Basophils % 0.1; Eosinophils % 2.3; HCT 38.7 % (36.0-46.0); HGB 13.6 g/dL (12.0-15.5); Immature Grans % 0.4 %; Lymphocytes % 18.9; Mean Corp. HGB Concentration 35.1 g/dL (32.0-36.0); Mean Corpuscular Hemoglobin 29.8 pg (27.0-33.0); Mean Corpuscular Volume 84.7 fL (80-95); Monocytes % 9.5; Neutrophils % 68.8; Platelet Count 135 x1000/uL (130-400); RBC 4.57 m/cumm (4.00-5.20); RBC Distribution Width 12.6 % (11.7-14.6); White Blood Cell Count 7.34 k/cumm (4.4-10.8)
[2019-04-22 15:04] LABS: Hepatitis B Surface Ag Negative (Negative); Hepatitis C Ab w Rflx HCV PCR Negative (Negative)
[2019-04-22 15:06] LABS: HIV-1/2 Ag & Ab Screen Negative (Negative); Rubella IgG Ab (UVM) Negative (See Note); Varicella IgG Antibody Positive (See Note)
[2019-04-22 15:48] LABS: Syphilis Total Ab w/Reflex Nonreactive (Nonreactive)
[2019-04-29 09:55] LABS: Result Summary NEGATIVE; Specimen WB Whole Blood
== END 2019-04-21 08:04 ==
PROVIDERS: Nurse Practitioner Family; PCP Nurse Practitioner Adult Health; Visit Provider Advanced Practice Midwife
DX: Z13.79 Encounter for other screening for genetic and chromosomal anomalies (principal); Z34.90 Encounter for supervision of normal pregnancy, unspecified, unspecified trimester
CPT/HCPCS: 36415; 86787; 86803; 86850; 86900; 86901; 87340; 87389; 81220; 84702; 85025; 86762; 86780

== ENCOUNTER 2019-06-06 02:01 | Outpatient (CLI) | payer MEDICAID, SELFPAY ==
--- NOTE | 2019-06-06 06:45 | DI.US_ITS ---
EXAM: US OB 2-3 TRIMESTER CLINICAL HISTORY: routine pnc,Z34.90 TECHNIQUE: Ultrasound performed using standard protocol. COMPARISON: US TRANSVAGINAL from 12/31/2018 FINDINGS: Ob ultrasound was performed according to the 2nd trimester protocol. biometry is consistent wi th a gestational age of 19 weeks 1 day and EDC of 10/30/2019. Placenta is fundal and posterior and t here is no evidence of placenta previa. There is visually a normal quantity of amniotic fluid. anomaly screen is within normal limits as per the attached checklist. cardiac rate is 15 2 BPM. IMPRESSION: DATA REPOSITORY:
== END 2019-06-06 02:21 ==
PROVIDERS: PCP Nurse Practitioner Adult Health; Visit Provider Advanced Practice Midwife
DX: Z34.92 Encounter for supervision of normal pregnancy, unspecified, second trimester (principal); Z3A.19 19 weeks gestation of pregnancy
CPT/HCPCS: 76805

== ENCOUNTER 2019-08-15 03:41 | Outpatient (CLI) | payer MEDICAID, SELFPAY ==
[2019-08-15 15:33] LABS: Glucose,1 Hr (Glucola) 127 mg/dL (80-140)
[2019-08-15 15:56] LABS: Abs Immature Grans 0.05 k/cumm (0.0-0.09); Absolute Basophil Count 0.01 k/cumm (0.0-0.2); Absolute Lymphocyte Count 1.49 k/cumm (1.2-3.4); Absolute Monocyte Count 0.91 k/cumm (0.11-0.7); Basophils % 0.1; Eosinophils % 0.9; HCT 38.4 % (36.0-46.0); HGB 13.5 g/dL (12.0-15.5); Immature Grans % 0.4 %; Lymphocytes % 12.9; Mean Corp. HGB Concentration 35.2 g/dL (32.0-36.0); Mean Corpuscular Hemoglobin 30.3 pg (27.0-33.0); Mean Corpuscular Volume 86.1 fL (80-95); Mean Platelet Volume 12.2 fL (8.0-11.0); Monocytes % 7.9; Neutrophils % 77.8; Platelet Count 145 x1000/uL (130-400); RBC 4.46 m/cumm (4.00-5.20); RBC Distribution Width 12.6 % (11.7-14.6); White Blood Cell Count 11.57 k/cumm (4.4-10.8)
== END 2019-08-15 04:01 ==
PROVIDERS: PCP Nurse Practitioner Adult Health; Visit Provider Obstetrics & Gynecology
DX: Z34.93 Encounter for supervision of normal pregnancy, unspecified, third trimester (principal)
CPT/HCPCS: 36415; 82950; 85025

== ENCOUNTER 2019-08-29 09:02 | Outpatient (CLI) | payer MEDICAID, SELFPAY ==
--- NOTE | 2019-08-29 12:30 | DI.US_ITS ---
EXAM: US OB TARIK WEIGHT CLINICAL HISTORY: scan for growth, htn, I10. TECHNIQUE: Transabdominal obstetrical ultrasound performed. COMPARISON: US US OB 2-3 TRIMESTER from 06/06/2019 FINDINGS:: Number of fetuses: One. position: Breech. Placental location: Posterior. No evidence of previa. BIOMETRIC DATA: BPD: 80mm = 32+0weeks HC: 291mm = 32+0 weeks AC: 266mm = 30+5 weeks FL: 59 mm = 30+6 weeks EFW: 1683 gms 48% Composite Age: 31 +3 weeks EDC: 10/28/19 Heart Rate: 165BPM Amniotic fluid index: 18.1 cm. Amount of fluid is within normal limits. IMPRESSION: size and weight are within the expected range. DATA REPOSITORY:
== END 2019-08-29 09:22 ==
PROVIDERS: PCP Nurse Practitioner Adult Health; Visit Provider Advanced Practice Midwife
DX: O10.013 Pre-existing essential hypertension complicating pregnancy, third trimester (principal); Z3A.30 30 weeks gestation of pregnancy
CPT/HCPCS: 76816

== ENCOUNTER 2019-09-26 02:37 | Outpatient (CLI) | payer MEDICAID, SELFPAY ==
--- NOTE | 2019-09-26 06:45 | DI.US_ITS ---
EXAM: US OB TARIK WEIGHT CLINICAL HISTORY: Growth and TARIK,HYPERTENSION,I10. TECHNIQUE: Transabdominal obstetrical ultrasound performed. COMPARISON: US US OB TARIK WEIGHT from 08/29/2019 FINDINGS:: Number of fetuses: One. position: Vertex. Placental location: Posterior. No evidence of previa. BIOMETRIC DATA: BPD: 87mm = 35+ 0 weeks HC: 319 mm = 36+ 0 weeks AC: 307mm = 34+4 weeks FL: 67 mm = 34+2 weeks EFW: 2492 Gms = 45% Composite Age: 35+ 0 weeks EDC: 31 October 2019 Heart Rate: 140BPM Amniotic fluid index: 17.5 cm. Amount of fluid is within normal limits. IMPRESSION: size and weight are within the expected range. DATA REPOSITORY:
== END 2019-09-26 02:57 ==
PROVIDERS: PCP Nurse Practitioner Adult Health; Visit Provider Obstetrics & Gynecology
DX: I10 Essential (primary) hypertension (principal); Z34.83 Encounter for supervision of other normal pregnancy, third trimester
CPT/HCPCS: 76816

== ENCOUNTER 2019-10-17 04:02 | Outpatient (CLI) | payer MEDICAID, SELFPAY ==
--- NOTE | 2019-10-17 07:00 | DI.US_ITS ---
EXAM: US OB TARIK WEIGHT CLINICAL HISTORY: growth and TARIK,HYPERTENSION,I10. TECHNIQUE: Transabdominal obstetrical ultrasound performed. COMPARISON: US US OB TARIK WEIGHT from 09/26/2019 FINDINGS:: Number of fetuses: One. position: Vertex. Placental location: Posterior. No evidence of previa. BIOMETRIC DATA: BPD: 9.0 mm = 36+ 4 weeks HC: 33mm = 37+ 2 weeks AC: 33mm = 37+ 2 weeks FL: 7.3 mm = 37+ 4 weeks EFW: 3170 Gms = 49% Composite Age: 37+ 1 weeks EDC: 06 November 2019 Heart Rate: 139BPM Amniotic fluid index: 20.6 cm., at the high normal range IMPRESSION: size and weight are within the expected range. Appropriate interval growth since the previous exam. DATA REPOSITORY:
== END 2019-10-17 04:22 ==
PROVIDERS: PCP Nurse Practitioner Adult Health; Visit Provider Obstetrics & Gynecology
DX: Z34.93 Encounter for supervision of normal pregnancy, unspecified, third trimester (principal); I10 Essential (primary) hypertension
CPT/HCPCS: 76816

== ENCOUNTER 2019-10-17 06:54 | Outpatient (CLI) | payer MEDICAID, SELFPAY | END 2019-10-17 07:14 | PROVIDERS: PCP Nurse Practitioner Adult Health; Visit Provider Obstetrics & Gynecology | DX: O10.013 Pre-existing essential hypertension complicating pregnancy, third trimester (principal); Z3A.37 37 weeks gestation of pregnancy | CPT/HCPCS: 59025; 87081 ==

== ENCOUNTER 2019-10-21 11:41 | Outpatient (CLI) | payer MEDICAID, SELFPAY | END 2019-10-21 12:01 | PROVIDERS: PCP Nurse Practitioner Adult Health; Visit Provider Advanced Practice Midwife | DX: O10.013 Pre-existing essential hypertension complicating pregnancy, third trimester (principal); Z3A.37 37 weeks gestation of pregnancy | CPT/HCPCS: 59025 ==

== ENCOUNTER 2019-10-24 07:30 | Outpatient (CLI) | payer MEDICAID, SELFPAY | END 2019-10-24 07:50 | PROVIDERS: PCP Nurse Practitioner Adult Health; Visit Provider Advanced Practice Midwife | DX: O13.3 Gestational [pregnancy-induced] hypertension without significant proteinuria, third trimester (principal); Z3A.38 38 weeks gestation of pregnancy | CPT/HCPCS: 59025 ==

== ENCOUNTER 2019-10-28 07:36 | Outpatient (CLI) | payer MEDICAID, SELFPAY | END 2019-10-28 07:56 | PROVIDERS: PCP Nurse Practitioner Adult Health; Visit Provider Advanced Practice Midwife | DX: O10.113 Pre-existing hypertensive heart disease complicating pregnancy, third trimester (principal); Z3A.38 38 weeks gestation of pregnancy | CPT/HCPCS: 59025 ==

== ENCOUNTER 2019-10-31 07:39 | Outpatient (CLI) | payer MEDICAID, SELFPAY | END 2019-10-31 07:59 | PROVIDERS: PCP Nurse Practitioner Adult Health; Visit Provider Advanced Practice Midwife | DX: O13.3 Gestational [pregnancy-induced] hypertension without significant proteinuria, third trimester (principal); Z3A.39 39 weeks gestation of pregnancy | CPT/HCPCS: 59025 ==

== ENCOUNTER 2019-11-03 03:38 | Inpatient (IN) | payer MEDICAID, SELFPAY ==
[2019-11-03 04:37] LABS: HCT 40.8 % (36.0-46.0); HGB 13.3 g/dL (11.2-15.7); MCH 26.8 pg (27.0-33.0); MCHC 32.6 % (32.0-36.0); MCV 82.3 fL (80-95); MPV 13.2 fL (8.0-11.0); Platelet Count 146 10^3/uL (130-400); RBC 4.96 10^6/uL (3.93-5.22); RDW 13.1 % (11.7-14.6); RDW-SD 38.7 fL; WBC 13.55 10^3/uL (4.4-10.8)
[2019-11-03] MEDS: Normal Saline Flush 10 ML SYR IVP ×2 (05:50→13:06)
[2019-11-03] MEDS: Lactated Ringers 500 ML IV (05:55)
[2019-11-03] MEDS: fentaNYL 100 MCG/2 ML VIAL (07:02)
[2019-11-03] MEDS: Bupivacaine 0.25% Pres-Free 30 ML VIAL (07:04)
[2019-11-03] MEDS: Oxytocin/Normal Saline 30 UNITS/500 ML BAG 334 UNITS IV (08:40)
[2019-11-03] MEDS: Labetalol 100 MG TAB PO ×2 (10:01→19:37)
[2019-11-03] MEDS: Hamamelis Leaf/Glycerin 100 EACH BOX PR (10:02)
[2019-11-03] MEDS: Famotidine 20 MG TAB 40 MG PO (10:07)
[2019-11-03] MEDS: Ondansetron 4 MG/2 ML VIAL IVP ×2 (12:45→16:51)
[2019-11-03] MEDS: Lactated Ringers 1,000 ML 125 ML IV ×2 (13:06→19:37)
[2019-11-04 07:00] LABS: HCT 35.9 % (36.0-46.0); HGB 11.5 g/dL (11.2-15.7); MCH 26.6 pg (27.0-33.0); MCV 82.9 fL (80-95); Platelet Count 102 10^3/uL (130-400); RBC 4.33 10^6/uL (3.93-5.22); RDW 13.2 % (11.7-14.6); RDW-SD 39.5 fL; WBC 9.21 10^3/uL (4.4-10.8)
[2019-11-04] MEDS: Labetalol 100 MG TAB PO (07:09)
[2019-11-04] MEDS: Famotidine 20 MG TAB 40 MG PO (07:09)
[2019-11-04 08:17] LABS: COVID-19 RT-PCR UVMMC Result Negative (Negative)
== END 2019-11-04 13:00 | disposition home or self-care (01) | DRG 806 ==
PROVIDERS: Admitting Provider Advanced Practice Midwife; PCP Nurse Practitioner Adult Health; Visit Provider Advanced Practice Midwife
DX: O70.0 First degree perineal laceration during delivery (principal); O10.02 Pre-existing essential hypertension complicating childbirth; Z37.0 Single live birth; O69.81X0 Labor and delivery complicated by cord around neck, without compression, not applicable or unspecified; O99.62 Diseases of the digestive system complicating childbirth; Z3A.39 39 weeks gestation of pregnancy; Z11.59 Encounter for screening for other viral diseases; R33.8 Other retention of urine; R11.2 Nausea with vomiting, unspecified; T41.3X5A Adverse effect of local anesthetics, initial encounter; K21.9 Gastro-esophageal reflux disease without esophagitis; Z28.3 Underimmunization status; Z67.10 Type A blood, Rh positive
CPT/HCPCS: 36415; 85027; 86850; 86900; 86901; U0003; J2405; J3010

== ENCOUNTER 2024-05-21 17:41 | Emergency (ER) | payer SELFPAY ==
--- NOTE | 2024-05-21 17:45 | DI.RAD_ITS ---
Exam(s) XR RIBS LT W PA LAT CHEST EXAM: XR RIBS LT W PA LAT CHEST CLINICAL HISTORY: Fall on chest. TECHNIQUE: 2D digital imaging was performed. COMPARISON: No exams were available for comparison FINDINGS: Total 6 views Left ribs-four views: There are no obvious acute left rib fractures identified. No left rib lesions. Chest-two views: Heart size is normal mediastinum is not widened. There is a benign granuloma in the mid left lung measuring 5 mm. A smaller granulomas noted in the mid right lung. Some scarring in t he right upper lobe is noted. No evidence of pneumothorax nor pleural effusions. There does appear to be a density in the mid left lung measuring approximately 1.2 x 1.5 cm, projected over the posteri or aspect of the left 8th rib on the frontal view. Possibly significant. Symmetrical nodular densit ies lower down in both lung steven appear to represent breast nipple shadows. IMPRESSION: No obvious left rib fractures nor pneumothorax. Abnormal density in the mid left lung as described above projected over the posterior aspect of the l eft 8th rib. There is a possibility that this is summation shadows from the 8th rib and inferior tip of the ipsilateral scapula as similar findings not seen on the other views. Other possibility would be lung contusion or more concerning infiltrate. No pleural effusions and no evidence of pneumothorax. DATA REPOSITORY: RADIATION DOSE DELIVERED:
[2024-05-21 17:47] VITALS: BP 173/114; PULSE 123; RESP 30; TEMP 36.8; O2SAT 98
--- NOTE | 2024-05-21 17:59 | W.ED.GENAD ---
Discharge Plan Disposition Patient Disposition: Home Condition: Stable Discharge Details Clinical Impression: Blunt injury of chest, Contusion of left lung Primary Care Provider: Cherrie Carrion ED Provider: Sandy Ramirez Home Meds and New Rx's Prescriptions: New lidocaine 5 % adhesive patch,medicated 1 patch topical DAILY Qty: 15 0RF Rx Instructions: leave on most painful area for up to 12 hrs No Action Children's Chewable Vitamin Tablet,Chewable 2 tab PO DAILY labetalol 100 mg tablet 100 mg PO BID Qty: 180 4RF Discharge Instructions Instructions: Bruised Lung, Blunt Chest Trauma ED Additional Instructions: At this time it appears you may have bruised your lung. He also have bruised your chest wall. No evidence of broken ribs or collapsed lung on the chest x-ray. Use the lidocaine patches as directed. Alternate ice and heat. Please take Tylenol or Ibuprofen with food every 4-6 hours as needed for pain and swelling. Return to the ER if you have severe increase in shortness of breath, severe increase in pain not relieved by Tylenol or ibuprofen, fever, coughing up blood or concerns. Follow up with primary care provider in 3-5 days. Return to ED sooner if any worsening or concerns. Thank you for allowing us to care for you today. Referrals: Cherrie Carrion [Primary Care Provider] - 1 week HPI General Mode of arrival: ambulatory. Date/Time Provider Initiated Documentation: 05/21/24 17:51. Limitations to Documentation: no limitations. Information obtained by: patient, RN notes reviewed and old records reviewed. HPI Narrative: 39-year-old female presents to the ER after being pulled down onto the ground by her dog. Patient reports that her 110 pound dog was on a leash and the dog ran behind her landing her on her left side. She is complaining of left-sided chest pain made worse with inspiration. She is speaking in full sentences. Lung sounds are noted bilaterally. She is quite tachycardic and hypertensive upon arrival. No obvious ecchymosis or bruising noted. Related Data Home Medications ?Medication ?Instructions ?Recorded ?Confirmed pediatric multivitamin (Children's 2 tab PO DAILY 04/04/19 05/21/24 Chewable Vitamin) labetalol 100 mg tablet 100 mg PO BID #180 tabs 06/12/19 05/21/24 lidocaine 5 % topical patch 1 patch topical DAILY #15 ea 05/21/24 Previous Rx's ?Medication ?Instructions ?Recorded labetalol 100 mg tablet 100 mg PO BID #180 tabs 06/12/19 lidocaine 5 % topical patch 1 patch topical DAILY #15 ea 05/21/24 Allergies Allergy/AdvReac Type Severity Reaction Status Date / Time Penicillins Allergy As Verified 05/21/24 17:51 Sulfa (Sulfonamide Allergy As infant Verified 05/21/24 17:51 Antibiotics) General Stated Complaint: Chest/Rib JN: 3 Exam Narrative Exam Narrative: General: Well Developed, Awake and Alert, conversant. Appears slightly anxious. Skin: Warm and Dry HEENT: Head: No palpable deformities, Normocephalic Eyes: Pupils PERRLA, EOM's intact. No periorbital eccymosis or step off Nose/Face: Atraumatic. Facial bones nontender to palpation and stable with manipulation. Mouth/Throat: No intraoral trauma. Teeth and mandible are intact. Neck: No midline tenderness, no step off, no deformity to palpation of C-spine. Trachea midline. Chest: No surface trauma. No obvious step-off or crepitus palpated, does have some left-sided anterior chest tenderness with palpation. Heart: RRR, no rubs, murmurs or gallop. Tachycardic upon arrival. Extremities: no surface trauma. Sensation intact. Peripheral pulses intact and equal. Neuro: ANO x4, GCS 15, cranial nerves II through XII intact. Motor and sensory exam nonfocal. Reflexes are symmetric. Course Vital Signs Vital signs: Vital Signs Temperature 36.8 C 05/21/24 17:47 Pulse 123 H 05/21/24 17:47 Respiratory Rate 30 H 05/21/24 17:47 Blood Pressure 173/114 H 05/21/24 17:47 Pulse Oximetry 98 05/21/24 17:47 Temperature 36.8 C 05/21/24 17:47 Pulse 123 H 05/21/24 17:47 Respiratory Rate 30 H 05/21/24 17:47 Blood Pressure 173/114 H 05/21/24 17:47 Blood Pressure Position Sitting 05/21/24 17:47 Pulse Oximetry 98 05/21/24 17:47 Oxygen Delivery Method Room Air 05/21/24 17:47 Oxygen Flow Rate 0 03/26/25 17:47 Medical Decision Making 39-year-old female presents to the ER after being pulled down onto the ground by her dog. Patient reports that her 110 pound dog was on a leash and the dog ran behind her landing her on her left side. She is complaining of left-sided chest pain made worse with inspiration. She is speaking in full sentences. Lung sounds are noted bilaterally. She is quite tachycardic and hypertensive upon arrival. No obvious ecchymosis or bruising noted. Xray of left rib series ordered. POCUS exam performed on patient to rule out PE, lung sliding evident, no B-lines noted. Only left side of the chest was done. Assisted and images reviewed by Dr. Yadira Carlos. On patient reevaluation she reports that her pain is the same. She did receive Tylenol. Discussed chest x-ray results no evidence of rib fracture, no pneumothorax. Possible lung contusion. Discussed x-ray results with patient I did encourage her to get reimaged by her PCP in the near future she verbalized understanding. Discussed strict return instructions. Will give lidocaine patch to the affected area prior to discharge. Discussed alternating ice and heat and taking Tylenol ibuprofen. This text was generated using [employer] (formerly [employer]) dictation system, please disregard any oddities of phrase or misspellings. Imaging Data Radiologic Study: Imaging: X-Ray Radiologist's impression: CLINICAL HISTORY: Fall on chest. TECHNIQUE: 2D digital imaging was performed. COMPARISON: No exams were available for comparison FINDINGS: Total 6 views Left ribs-four views: There are no obvious acute left rib fractures identified. No left rib lesions. Chest-two views: Heart size is normal mediastinum is not widened. There is a benign granuloma in the mid left lung measuring 5 mm. A smaller granulomas noted in the mid right lung. Some scarring in the right upper lobe is noted. No evidence of pneumothorax nor pleural effusions. There does appear to be a density in the mid left lung measuring approximately 1.2 x 1.5 cm, projected over the posterior aspect of the left 8th rib on the frontal view. Possibly significant. Symmetrical nodular densities lower down in both lung steven appear to represent breast nipple shadows. IMPRESSION: No obvious left rib fractures nor pneumothorax. Abnormal density in the mid left lung as described above projected over the posterior aspect of the left 8th rib. There is a possibility that this is summation shadows from the 8th rib and inferior tip of the ipsilateral scapula as similar findings not seen on the other views. Other possibility would be lung contusion or more concerning infiltrate. No pleural effusions and no evidence of pneumothorax. Quality:SDOH Health Related Social Needs: No Data to Display PFSH All Active Problems (Updated 05/21/24 @ 20:35 by Sandy Ramirez NP) Contusion of left lung (Acute) Blunt injury of chest (Acute) Encounter for visit (Acute) (Acute) HTN (hypertension) (Chronic) Ectopic (Acute) Spontaneous (Acute) Surgical History Hx of tonsillectomy History of salpingectomy Family History Mother Anxiety Father Patient's father is Maternal Aunt Breast cancer Social History Smoking/Tobacco Use Status: Never Smoking risk assessment performed?: Yes Alcohol Intake: current Alcohol Intake frequency: other Details: etoh use d/c w/ knowledge of . Drug use: Never Substance use type: does not use Counseling given: No Do you feel safe at home: Yes Do you feel safe in your relationship?: Yes History History 4 Para 3 Hx # Term Pregnancies 3 Multiple births 0 Hx # Pregnancies 0 Ectopic pregnancies 1 AB induced 0 Hx Number of Living Children 3 AB spontaneous 0 Past Pregnancies Del. Date GA/Weeks # Preg Succ Route Wgt Sex Labor Lgth Anesthesia Location [facility] 08/20/12 42 Yes vaginal 3827.186 g Male >24 hrs [facility]. [place] 08/05/14 39 No vaginal 3345.244 g Female 5 hrs [facility] 11/03/19 39 No vaginal 3600.389 g Female 4hrs 49 min LAURIE Bowers Delivery Date: 08/20/12 Last Updated by: Jaskaran Bolaños CNM probable 2nd degree, possible 3rd degree. Delivery Date: 08/05/14 Last Updated by: Jaskaran Bolaños CNM perineum intact.
[2024-05-21] MEDS: Acetaminophen 500 MG TAB 1000 MG PO (18:37)
[2024-05-21] MEDS: Lidocaine 5% Patch 1 PATCH TP (20:35)
[2024-05-21 20:58] VITALS: BP 153/87; PULSE 102; RESP 18; O2SAT 99
== END 2024-05-21 20:58 | disposition home or self-care (01) ==
PROVIDERS: Emergency Provider Registered Nurse Emergency; PCP Nurse Practitioner Adult Health
DX: S29.8XXA Other specified injuries of thorax, initial encounter (principal); S27.321A Contusion of lung, unilateral, initial encounter; I10 Essential (primary) hypertension; W01.0XXA Fall on same level from slipping, tripping and stumbling without subsequent striking against object, initial encounter; Y93.K1 Activity, walking an animal; Y92.89 Other specified places as the place of occurrence of the external cause
CPT/HCPCS: 81025; 99285; 71046; 71100; 99284

== ENCOUNTER 2024-09-10 12:09 | Emergency (ER) | payer MEDICAID, SELFPAY ==
[2024-09-10] VITALS (37 sets, daily range): BP systolic 113–151; BP diastolic 60–95; PULSE 70–122; RESP 12–26; TEMP 36.5–36.9; O2SAT 98–100
--- NOTE | 2024-09-10 12:30 | DI.US_ITS ---
Exam(s) US PELVIS TRANSVAGINAL EXAM: US PELVIS TRANSVAGINAL CLINICAL HISTORY: heavy vaginal bleeding, febrile. +upreg at . TECHNIQUE: Transabdominal and transvaginal pelvic ultrasound was performed using standard protocol. COMPARISON: US US OB TARIK WEIGHT from 10/17/2019 FINDINGS: UTERUS: Position: Anteverted. Size: 9.3 long by 4.3 AP by 5.7 transverse cm Endometrium: 1.0 cm. Normal for patient's menstrual status. There is some hyperechoic material within the endometrial canal which may represent hemorrhage or clot. There is no intrauterine gestational sac present. Myometrium: Unremarkable. Cervix: Nabothian cysts are present. OVARIES: Right: 2.6 x 2.4 x 2.0 cm Cyst or mass: No suspicious cystic or solid masses. There is a thick-walled 1.7 cm cyst on the right ovary which may represent a corpus luteal cyst. Left: 3.2 x 1.5 x 2.2 cm Cyst or mass: No suspicious cystic or solid masses. DOPPLER: Color: Symmetric and uniform flow to both ovaries. CUL-DE-SAC: Free fluid: There is a trace amount of free fluid in the cul-de-sac. Other: None. IMPRESSION: 1. No evidence of an intrauterine gestational sac. No sonographic findings of an ectopic are seen. 2. If there is continued clinical concern follow-up beta HCG levels and pelvic ultrasound is recommended. 3. 1.7 cm right ovarian cyst consistent with a corpus luteal cyst. 4. Hyperechoic material seen within the endometrial canal suspicious for hemorrhage or clot. DATA REPOSITORY:
--- NOTE | 2024-09-10 12:59 | ED.GENADUL_ITS ---
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 [facility] Narrative: Karena is a 39-year-old female (A1) who presents to the emergency dept for evaluation of fever with heavy vaginal bleeding and lower abdominal pain. Last menstrual period: second last week of 04/2024. Did not have any typical symptoms of such as tender breasts, so assumed missed menstrual cycles were due to stress. Had multiple negative tests at home. Started spotting a week ago, attributed to dietary changes (though menstrual cycle was returning). Last Sunday, experienced severe pain while spotting, followed by heavy bleeding (gush down legs) for two days. Used thick pads and tampons, soak ed every couple of hours. 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 Sunday: felt unwell, crampy, heavy, worst period ever. Yesterday experienced lightheaded while gardening yesterday, chills and hot flashes in the evening, attributed to sun exposure. Heavy bleeding continued intermittently yesterday, less severe than Sunday and Sunday. Fever this morning, positive test at urgent care. Suspects miscarriage since Sunday. Sexually active since last period. Feels hot and tired despite adequate sleep. Denies congestion, sore throat, ear pain, coughing, palpitations, chest pain, nausea, or vomiting. Current bleeding like normal flow, using medium pads and tampons. Pain when passing gas, tender, swollen, bloated lower abdomen. No history of heart, lung, thyroid problems, or diabetes. No primary care visit since symptoms started. Normal blood count at urgent care. History of ruptured ectopic in 2019. No other abdominal surgeries. Related Data Allergies Allergy/AdvReac Type Severity Reaction Status Date / Time Penicillins Allergy As Verified 09/10/24 12:22 Sulfa (Sulfonamide Allergy As Verified 09/10/24 12:22 Antibiotics) General Stated Complaint: INTERIOR BLOCK WIRER JN: 3 Exam Narrative Exam Narrative: General Appearance: Normal. Patient does appear anxious Vital signs: Tachycardia noted. No fever in triage. HEENT: No conjunctival or mucosal pallor. Mucous membranes Cardiovascular: Tachycardia noted, regular rhythm. Normal heart sounds. Respiratory: Easy work of breathing, lung sounds clear bilaterally Gastrointestinal: Soft abdomen, tenderness in left lower quadrant, normoactive bowel sounds. No CVA tenderness Extremities: Moving all extremities equally Skin: Warm and dry, no rash. Psychiatric: Normal. Course Vital Signs Vital signs: Vital Signs Temperature 36.9 C 09/10/24 12:16 Pulse 122 H 09/10/24 12:16 Respiratory Rate 16 09/10/24 12:16 Blood Pressure 151/95 H 09/10/24 12:16 Pulse Oximetry 100 09/10/24 12:16 Temperature 36.9 C 09/10/24 12:16 Temperature Source Oral 09/10/24 12:16 Pulse 122 H 09/10/24 12:16 Respiratory Rate 16 09/10/24 12:16 Blood Pressure 151/95 H 09/10/24 12:16 Blood Pressure Position Supine 09/10/24 12:16 Pulse Oximetry 100 09/10/24 12:16 Oxygen Delivery Method Room Air 09/10/24 12:16 Oxygen Flow Rate 0 09/10/24 12:16 Lab/Test Results Lab/Test Results: 09/10/24 12:43 Blood Blood Culture - Pending 09/10/24 12:43 Blood Blood Culture - Pending Medical Decision Making Initial Assessment: 39-year-old female with heavy vaginal bleeding, severe pain, lightheadedness, chills, hot flashes, fever. Positive test suggests miscarriage. Differential Diagnosis: Spontaneous , incomplete/septic , ectopic , molar , dysfunctional uterine bleeding, compli cations such as anemia, thyroid dysfunction ED Course: - Abdomen: Soft, tender in left lower quadrant, normoactive bowel sounds. - Blood work ordered for anemia and other issues. Blood cultures drawn - Ultrasound planned to assess miscarriage. I independently interpreted the following tests: Quantitative hCG elevated at 918. CBC, CMP, lactate, TSH all unremarkable. UA notable only for trace blood and trace leuks. Patient is Rh+. While in the emergency department Karena received Tylenol IV and IV fluids for discomfort. IV metronidazole, doxycycline, and ceftriaxone administered. Ultrasound performed, no evidence of intrauterine gestational sac or ectopic . 1.7 cm right ovarian cyst consistent with corpus luteum cyst noted. There is hyperechoic material noted within the endometrial canal suspicious for hemorrhage or clot. Discussed case with DEEPTI Garg. She recommends empiric antibiotics and COVID/flu to r/o other etiology of fever, will evaluate pt in ED. Clinical Impression: - vaginal bleeding -fever Patient has been evaluated by INTERIOR BLOCK WIRER Dr Medel; she recommends observing for few more hours to complete antibiotics, repeat vital signs, and reassessment. She plans to reassess prior to discharge home (pt is request DC home rather than inpatient obs) Handoff report given to Zaid CABRAL, evening ALEE. Patient consented to the use of [facility] Imaging Data Radiologic Study: Radiologist's impression: Exam(s) US PELVIS TRANSVAGINAL EXAM: US PELVIS TRANSVAGINAL CLINICAL HISTORY: heavy vaginal bleeding, febrile. +upreg at . TECHNIQUE: Transabdominal and transvaginal pelvic ultrasound was performed using standard protocol. COMPARISON: US US OB TARIK WEIGHT from 10/17/2019 FINDINGS: UTERUS: Position: Anteverted. Size: 9.3 long by 4.3 AP by 5.7 transverse cm Endometrium: 1.0 cm. Normal for patient's menstrual status. There is some hyperechoic material within the endometrial canal which may represent hemorrhage or clot. There is no intrauterine gestational sac present. Myometrium: Unremarkable. Cervix: Nabothian cysts are present. OVARIES: Right: 2.6 x 2.4 x 2.0 cm Cyst or mass: No suspicious cystic or solid masses. There is a thick-walled 1.7 cm cyst on the right ovary which may represent a corpus luteal cyst. Left: 3.2 x 1.5 x 2.2 cm Cyst or mass: No suspicious cystic or solid masses. DOPPLER: Color: Symmetric and uniform flow to both ovaries. CUL-DE-SAC: Free fluid: There is a trace amount of free fluid in the cul-de-sac. Other: None. IMPRESSION: 1. No evidence of an intrauterine gestational sac. No sonographic findings of an ectopic are seen. 2. If there is continued clinical concern follow-up beta HCG levels and pelvic ultrasound is recommended. 3. 1.7 cm right ovarian cyst consistent with a corpus luteal cyst. 4. Hyperechoic material seen within the endometrial canal suspicious for hemorrhage or clot PFSH All Active Problems (Updated 06/21/24 @ 00:00 by ANGELA GARCÍA) Encounter for visit (Acute) (Acute) HTN (hypertension) (Chronic) Ectopic (Acute) Spontaneous (Acute) Surgical History Hx of tonsillectomy History of salpingectomy Family History Mother Anxiety Father Patient's father is Maternal Aunt Breast cancer Social History Smoking/Tobacco Use Status: Never Smoking risk assessment performed?: Yes Alcohol Intake: never Details: etoh use d/c w/ knowledge of . Drug use: Never Substance use type: does not use Counseling given: No Housing: other Do you feel safe at home: Yes Do you feel safe in your relationship?: Yes History History 4 Para 3 Hx # Term Pregnancies 3 Multiple births 0 Hx # Pregnancies 0 Ectopic pregnancies 1 AB induced 0 Hx Number of Living Children 3 AB spontaneous 0 Past Pregnancies Del. Date GA/Weeks # Preg Succ Route Wgt Sex Labor Lgth Anesth esia Location [facility] 08/20/12 42 Yes vaginal 3827.186 g Male >24 hrs [facility] [place] 08/05/14 39 No vaginal 3345.244 g Female 5 hrs [facility] 11/03/19 39 No vaginal 3600.389 g Female 4hrs 49 min LAURIE Bowers Delivery Date: 08/20/12 Last Updated by: Jaskaran Bolaños CNM probable 2nd degree, possible 3rd degree. Delivery Date: 08/05/14 Last Updated by: Jaskaran Bolaños CNM perineum intact.
[2024-09-10 13:09] LABS: Abs Immature Grans 0.04 10^3/uL (0.0-0.06); HCT 43.1 % (36.0-46.0); HGB 14.6 g/dL (11.2-15.7); Immature Grans % 0.5 %; MCH 29.4 pg (27.0-33.0); MCHC 33.9 % (32.0-36.0); MCV 87 fL (80-95); MPV 11.2 fL (8.0-11.0); Platelet Count 152 10^3/uL (130-400); RBC 4.97 10^6/uL (3.93-5.22); RDW 12.9 % (11.7-14.6); RDW-SD 40.4 fL; WBC 8.19 10^3/uL (4.4-10.8)
[2024-09-10 13:28] LABS: ALT 23 U/L (14-59); AST 14 U/L (15-37); Albumin 4.1 g/dL (3.4-5.0); Alkaline Phosphatase 46 U/L (46-116); Anion Gap 11.9 mmol/L (3-11); BUN 4 mg/dL (7-18); Bilirubin, Total 0.6 mg/dL (0.2-1.0); CO2 26.1 mmol/L (21.0-32.0); Calcium 9.2 mg/dL (8.5-10.1); Chloride 101 mmol/L (98-107); Estimated GFR 123.04 (mL/min/1.73m2); Glucose 106 mg/dL (74-106); Potassium 4.0 mmol/L (3.5-5.1); Sodium 139 mmol/L (136-145); Total Protein 7.4 g/dL (6.4-8.2)
[2024-09-10] MEDS: cefTRIAXone 2 GM/50 ML BAG IVPB (13:50)
[2024-09-10] MEDS: Normal Saline 1,000 ML 1000 ML IV (13:51)
[2024-09-10] MEDS: ACETAMINOPHEN 1,000 MG/100 ML BAG 400 MG IVPB (13:54)
[2024-09-10 13:55] LABS: HCG Quant, Pregnancy 918 mIU/mL (1-3)
[2024-09-10 14:00] LABS: Glucose Negative (Negative)
[2024-09-10 14:17] LABS: Lab Add On Test DONE
[2024-09-10] MEDS: metroNIDAZOLE 500 MG/100 ML BAG 100 MG IVPB (14:24)
[2024-09-10 14:34] LABS: C & S Indicated? No; RBC 0-2 HPF (0-2); WBC 0-2 HPF (0-5)
[2024-09-10 14:39] LABS: TSH (W/Ref FT4) 0.46 uIU/mL (0.36-3.74)
[2024-09-10] MEDS: DOXYCYCLINE 100 MG in Normal Saline 100 ML IVPB (15:31)
--- NOTE | 2024-09-10 17:52 | W.GYNCONSULT ---
Date of service: 09/10/24 Time of Service: 17:52 Assessment and Plan Assessment and plan (1) Spontaneous : Status: Acute Assessment and plan: Upon arrival to the emergency department, I suggested to the ED attending initiating ceftriaxone. doxycycline, and metronidazole given her notable temp that was reported at the urgent care. However, upon presentation to our emergency department, the patient is noted to have been afebrile and remained afebrile over the course of her stay. Both her white count and lactic acid were normal and her hemoglobin is normal and stable from testing at the urgent care. Platelets are also stable and normal. Her exam is reassuring and without overt evidence of infection secondary to retained products of conception. Her ultrasound does not find overt evidence of retained products, though the endometrial stripe is modestly thickened; this thickening may be secondary to recent miscarriage, which most thoroughly explains her overall clinical picture. Over the course of her stay in the emergency department, she did receive 1 dose of each of the above antibiotics as well as IV fluids. I discussed potential admission for observation overnight; however, the patient expresses personal interest in discharge. We discussed the importance of close follow-up, and she states that she will be able to make it into the office tomorrow morning for further assessment. She will have labs drawn in the morning before she is seen in the office, and we did discuss the potential for early versus ectopic, etc. She was strongly advised to have a low threshold for seeking immediate medical evaluation in the event that further concerns arise or her symptoms progress. History of Present Illness Narrative: 39-year-old -0-1-3 ( x 3, ectopic x 1) presents to the emergency department with first day last menstrual period of second week in April (approximately 18 weeks ago) sent from urgent care for concerns surrounding retained products of conception. Patient states that she is going through a, messy divorce. She has been sexually active on and off with the same partner and states she has not had a period since April. She reports having taken several test at home, all of which were negative, though she is uncertain when the last one was. On September 05, patient states she had a sudden onset of severe abdominal cramping with very heavy vaginal bleeding at work. Patient states she attributed this to the fact that she had not had a period in a while and she thought maybe her most recent period would just be super heavy. She reports having blood through her clothing over the course of the next few days on multiple occasions with severe, intermittent cramping and passage of what seemed to be tissue. Patient states the bleeding dissipated after day 3; however, on Sunday, she began to feel intermittently ill with notable fatigue and occasional chills. This has persisted over the last few days, which has prompted her to be seen in the urgent care as of today. She has not taken her temperature at home. Her cramping has resolved as of last night, and she reports that her bleeding is slowed substantially. She denies nausea vomiting or any sick contacts. She denies any urinary symptoms. During her evaluation urgent care, patient states that her temperature was taken with a laser probe. I received a report from the provider at the urgent care that she had a positive urine test with fever and was being sent to the emergency department for further evaluation. Review of Systems All systems reviewed & are unremarkable except as noted in HPI and below PFSH All Active Problems Vaginal bleeding (Acute) Encounter for visit (Acute) (Acute) HTN (hypertension) (Chronic) Ectopic (Acute) Spontaneous (Acute) Surgical History Hx of tonsillectomy History of salpingectomy Family History Mother Anxiety Father Patient's father is Maternal Aunt Breast cancer Social History Smoking/Tobacco Use Status: Never Smoking risk assessment performed?: Yes Alcohol Intake: never Details: etoh use d/c w/ knowledge of . Drug use: Never Substance use type: does not use Counseling given: No Housing: other Do you feel safe at home: Yes Do you feel safe in your relationship?: Yes History History 4 Para 3 Hx # Term Pregnancies 3 Multiple births 0 Hx # Pregnancies 0 Ectopic pregnancies 1 AB induced 0 Hx Number of Living Children 3 AB spontaneous 0 Past Pregnancies Del. Date GA/Weeks # Preg Succ Route Wgt Sex Labor Lgth Anesthesia Location Prov Complic 06/25/13 42 Yes vaginal 8 lb 7 oz Male >24 hrs [facility] 08/05/14 39 No vaginal 7 lb 6 oz Female 5 hrs [facility] 11/03/19 39 No vaginal 7 lb 15 oz Female 4hrs 49 min [facility] Bowers Delivery Date: 08/20/12 Last Updated by: Jaskaran Bolaños CNM probable 2nd degree, possible 3rd degree. Delivery Date: 08/05/14 Last Updated by: Jaskaran Bolaños CNM perineum intact. Exam Const General: cooperative and healthy appearing Nutritional Appearance: well nourished Orientation: alert and awake HENMT Head: normocephalic Resp Effort & Inspection: normal respiratory effort GI Other: Soft, nondistended, nontender even with deep palpation Other: Bimanual exam appreciates a soft cervix without overt dilation; no palpable products. Very scant old blood appreciated on glove following exam. No odor or overtly concerning discharge. Skin General skin exam: no rashes or lesions noted Neuro General: patient alert and patient awake Extrem General: normal to inspection Psych Appearance: well kempt Mental Status: mental status grossly normal Affect: normal affect Results Last Vital Signs Temp 97.7 F 09/10/24 17:31 Pulse 72 09/10/24 17:31 Resp 23 09/10/24 17:31 BP 116/75 09/10/24 17:31 Pulse Ox 100 09/10/24 15:31 Labs 09/10/24 12:49 09/10/24 12:49 Labs: Laboratory Results - last 24 hr 09/10/24 09/10/24 12:49 13:00 WBC 8.19 RBC 4.97 Hgb 14.6 Hct 43.1 MCV 87 MCH 29.4 MCHC 33.9 RDW 12.9 Plt Count 152 MPV 11.2 H Immature Gran % 0.5 Neutrophils % 83.4 Lymphocytes % 8.5 Monocytes % 6.7 Eosinophils % 0.5 Basophils % 0.4 Nucleated RBC % 0.0 Absolute Neutrophils 6.83 H Absolute Lymphocytes 0.70 L Absolute Monocytes 0.55 Absolute Eosinophils 0.04 Absolute Basophils 0.03 VBG Lactate 1.1 Sodium 139 Potassium 4.0 Chloride 101 Carbon Dioxide 26.1 Anion Gap 11.9 H BUN 4 L Creatinine 0.5 L Est GFR (CKD-EPI 2021) 123.04 Glucose 106 Calcium 9.2 Total Bilirubin 0.6 AST 14 L ALT 23 Alkaline Phosphatase 46 Total Protein 7.4 Albumin 4.1 TSH 0.46 Serum HCG, Qual Cancelled Beta HCG, Quant 918 H Urine Color Yellow Urine Clarity Clear Urine pH 7.0 Ur Specific [place] 1.010 Urine Protein Negative Urine Ketones Negative Urine Blood Trace-intact H Urine Nitrite Negative Urine Bilirubin Negative Urine Urobilinogen 0.2 Ur Leukocyte Esterase Trace H Urine RBC 0-2 Urine WBC 0-2 Ur Epithelial Cells Rare Urine Crystals Negative Urine Bacteria Negative Urine Casts Negative Urine Mucus Negative Ur Culture Indicated? No Urine Glucose Negative Add-On Test Request DONE ABO/Rh A Positive Lactic acid 1.1 Imaging Imaging Studies: Transvaginal ultrasound performed today finds a 9.3 x 4.3 x 5.7 cm uterus with an endometrial stripe measuring 1 cm. Personal review of the ultrasound findings no evidence of blood flow enhancement throughout the endometrium nor are there any overt structures or evidence of . There is a 1.7 cm right ovarian cyst which appears simple in appearance and does not exhibit a ring of fire or concerns for ectopic; most consistent with a corpus luteal cyst.
== END 2024-09-10 18:02 | disposition home or self-care (01) ==
PROVIDERS: Nurse Practitioner Family; Student in an Organized Health Care Education/Training Program; Emergency Provider Physician Assistant; PCP Nurse Practitioner Adult Health
DX: N93.9 Abnormal uterine and vaginal bleeding, unspecified (principal); N83.201 Unspecified ovarian cyst, right side
CPT/HCPCS: 36415; 80053; 81025; 86900; 86901; 87040; 87426; 96365; 96366; 96367; 96368; 99284; 76830; 76856; 81003; 81015; 83605; 84443; 84702; 84703; 85025; J0131; J0696; J1836

== ENCOUNTER 2024-09-11 01:32 | Outpatient (CLI) | payer MEDICAID, SELFPAY ==
[2024-09-11 07:47] LABS: HCG Quant, Pregnancy 636 mIU/mL (1-3)
== END 2024-09-11 01:33 | disposition home or self-care (01) ==
LOC: LBO 01:33
PROVIDERS: PCP Nurse Practitioner Adult Health; Visit Provider Obstetrics & Gynecology
DX: Z34.91 Encounter for supervision of normal pregnancy, unspecified, first trimester (principal)
CPT/HCPCS: 36415; 84702